=== PATIENT | female | born 1970 | race Two or more races ===

== ENCOUNTER 2020-08-07 11:16 | Emergency (ER) | payer OTHER ==
[~2020-08-07] VITALS: Ht 175.3 cm; Wt 89.4 kg
[2020-08-07 11:20] VITALS: BP 160/94
--- NOTE | 2020-08-07 11:36 | NUR ---
[facility] AT [facility].
--- NOTE | 2020-08-07 11:40 | NUR ---
AT BEDSIDE FOR EVAL.
[2020-08-07] MEDS ORDERED: LIDOCAINE 1%-EPI 1:100,000 20 ML VIAL ONE (11:41)
[2020-08-07] MEDS ORDERED: GELATIN SPONGE,ABSORBABLE 1 SPONGE SPONGE TP ONE (11:41)
[2020-08-07] MEDS ORDERED: TDAP [DIPH/PERTUSSIS/TET] 0.5 ML VIAL IM ONE (11:56)
[2020-08-07] MEDS: BACITRACIN ZINC OINT PACKET 1 EA PACKET TP ONE (11:59)
[2020-08-07] MEDS: LIDOCAINE 1%-EPI 1:100,000 20 ML VIAL IJ ONE (11:59)
[2020-08-07] MEDS: TDAP [DIPH/PERTUSSIS/TET] 0.5 ML VIAL IM ONE (11:59)
[2020-08-07] MEDS ORDERED: CEPH500T PO (13:20)
[2020-08-07] MEDS ORDERED: HYDR-4303 PO (13:20)
--- NOTE | 2020-08-07 13:26 | NUR ---
Patient discharged to home in stable condition. Written and verbal after care instructions given. Patient verbalizes understanding of instruction.
== END 2020-08-07 13:27 | disposition home or self-care (01) ==
LOC: ER 11:37
DX: S61.200A Unspecified open wound of right index finger without damage to nail, initial encounter (principal); I10 Essential (primary) hypertension; Z91.012 Allergy to eggs; X58.XXXA Exposure to other specified factors, initial encounter; Y93.89 Activity, other specified; Y92.89 Other specified places as the place of occurrence of the external cause; Y99.8 Other external cause status
CPT/HCPCS: 90471; 90715; 99283; J3490